=== PATIENT | male | born 1945 | race Caucasian/White ===

== ENCOUNTER 2016-08-21 11:43 | Emergency (ER) | payer OTHER, BC ==
[2016-08-21 11:46] VITALS: TEMP 98; BMI 26.4
[2016-08-21 13:11] LABS: BASOPHIL 0.7 % (0-2.0); EOSINOPHIL 0.9 % (0-4.5); MCH 32.2 pg (25.7-33.7); MCHC 33.7 g/dl (32.0-35.9); MEAN CELL VOLUME 95.6 fl (80-96); MEAN PLT VOLUME 7.5 fl (7.5-11.1); NEUTROPHILS 66.9 % (42.8-82.8); PLATELET COUNT 234 K/MM3 (134-434); RDW 13.4 % (11.9-15.9)
[2016-08-21 13:15] LABS: URINE APPEARANCE CLEAR; URINE BILIRUBIN NEGATIVE (NEGATIVE); URINE BLOOD NEGATIVE (NEGATIVE); URINE COLOR COLORLESS; URINE GLUCOSE (UA) NEGATIVE (NEGATIVE); URINE KETONE NEGATIVE (NEGATIVE); URINE LEUK ESTERASE NEGATIVE (NEGATIVE); URINE NITRITE NEGATIVE (NEGATIVE); URINE PROTEIN NEGATIVE (NEGATIVE); URINE UROBILINOGEN NEGATIVE E.U./dl (0.2-1.0)
--- NOTE | 2016-08-21 13:30 | PDOC ---
History of Present Illness - General History Source: Patient - History of Present Illness Presenting Symptoms: Chest Pain Timing/Duration: reports: constant Chest Pain Radiation: reports: no radiation <Manohar Max Last Filed: 08/21/16 17:52> <Kassandra Lucas - Last Filed: 08/22/16 11:11> - General Chief Complaint: Chest Pain Stated Complaint: CHEST PAIN Time Seen by Provider: 08/21/16 12:27 Past History - Past Medical History Anemia: No Asthma: No Cancer: No Cardiac Disorders: Yes (ATRIAL FIB) CVA: No COPD: No CHF: No Dementia: No Diabetes: No GI Disorders: Yes (GERD) Disorders: No HTN: Yes Hypercholesterolemia: Yes Liver Disease: No Seizures: No Thyroid Disease: No - Surgical History Abdominal Surgery: Yes (INGUINAL HERNIA) - Psycho/Social/Smoking Cessation Hx Suicidal Ideation: No Smoking History: Former smoker Have you smoked in the past 12 months: No If you are a former smoker, when did you quit?: 14 YRS AGO Information on smoking cessation initiated: No Hx Alcohol Use: Yes (SOCIAL) Drug/Substance Use Hx: No Substance Use Type: None <Manohar Max Last Filed: 08/21/16 17:52> <Kassandra Lucas - Last Filed: 08/22/16 11:11> - Past Medical History Allergies/Adverse Reactions: Allergies Allergy/AdvReac Type Severity Reaction Status Date / Time No Known Allergies Allergy Verified 08/21/16 11:46 Home Medications: Ambulatory Orders Atorvastatin Ca [Lipitor] 20 mg PO ASDIR 12/10/15 Flecainide Acetate 150 mg PO BID 12/10/15 Rabeprazole Sodium 20 mg PO DAILY 12/10/15 Rivaroxaban [Xarelto -] 20 mg PO DAILY 12/10/15 Tadalafil [Cialis] 5 mg PO DAILY 12/10/15 Cardiac Specific PMH - Complaint Specific PMHX Pacemaker: No <Manohar Max Filed: 08/21/16 17:52> Review of Systems - Review of Systems Constitutional: No: Fever Respiratory: No: Cough, Shortness of Breath Cardiac (ROS): Yes: Chest Pain. No: Lightheadedness, Palpitations ABD/GI: No: Nausea, Vomiting <Manohar Max - Last Filed: 08/21/16 17:52> *Physical Exam - Physical Exam General Appearance: Yes: Appropriately Dressed. No: Apparent Distress HEENT: positive: Normal Voice Neck: positive: Supple Respiratory/Chest: positive: Lungs Clear, Normal Breath Sounds. negative: Respiratory Distress Cardiovascular: positive: Regular Rate, S1, S2 Gastrointestinal/Abdominal: positive: Soft. negative: Tender Integumentary: positive: Dry, Warm Neurologic: positive: Fully Oriented, Alert, Normal Mood/Affect <Essence MaxJo Ann - Last Filed: 08/21/16 17:52> - Vital Signs Last Vital Signs Temp Pulse Resp BP Pulse Ox 98.0 F 72 18 114/60 100 08/21/16 11:43 08/21/16 18:09 08/21/16 18:09 08/21/16 18:09 08/21/16 18:09 Heart Score/ECG Review - History History: Slightly suspicious - Electrocardiogram EKG: Normal - Age Age: >/= 65 - Risk Factors Risk Factors Heart Score: Yes Hx Hypertension Based on the list above the patient has:: 1-2 risk factors - Troponin Troponin: </= normal limit - Score Heart Score - Total: 3 <Essence MaxJo Ann - Last Filed: 08/21/16 17:52> ED Treatment Course - LABORATORY CBC & Chemistry Diagram: 08/21/16 13:00 08/21/16 13:00 <MansoorEssenceJo Ann - Last Filed: 08/21/16 17:52> - LABORATORY CBC & Chemistry Diagram: 08/21/16 13:00 08/21/16 13:00 <Kassandra Lucas - Last Filed: 08/22/16 11:11> - ADDITIONAL ORDERS Additional order review: 08/21/16 13:00 RBC 4.79 MCV 95.6 MCHC 33.7 RDW 13.4 MPV 7.5 Neutrophils % 66.9 D Lymphocytes % 19.5 D Monocytes % 12.0 H Eosinophils % 0.9 D Basophils % 0.7 - Medications Given in the ED: ED Medications Discontinued Medications Generic Name Dose Route Start Last Admin Trade Name Freq PRN Reason Stop Dose Admin Acetaminophen 650 mg 08/21/16 16:51 08/21/16 16:58 Tylenol - PO 08/21/16 16:52 650 mg ONCE ONE Administration Medical Decision Making <Manohar Max - Last Filed: 08/21/16 17:52> <Kassandra Lucas - Last Filed: 08/22/16 11:11> - Medical Decision Making 08/21/16 13:30 70-year-old male, history of hypertension, A. fib on xarelto, presenting with chest pain. Patient reports left-sided, non-radiating chest pain that started this morning shortly after playing golf. Unable to describe pain and states it is a 7 out of a 10. Pain only worse with deep inspiration, not with exertion. No shortness of breath, diaphoresis, nausea, vomiting, palpitations, leg pain or swelling. States he's had similar pain in the past that usually resolve spontaneously. States this time pain is more persistent and so decided to come to ED. Of note, patient had a stress test a month ago that was negative as per patient. Follows up with Dr. Cruz of cards at [facility] and Katelyn lara is aware of ED visit See exam Atypical CP S/p neg stress last month per pt Stable and well alondra in ED Exam unremarkable Declines asa -ekg -labs -discuss dispo w/ cards 08/21/16 13:41 Case d/w Dr Cruz, agrees w/ r/o with 2 sets and discharge 08/21/16 14:01 08/21/16 16:51 08/21/16 17:03 Trops neg. Pt stable and pain free at this time. Will dc w/ cards f/u 08/21/16 17:22 08/21/16 17:52 (Manohar Max) *DC/Admit/Observation/Transfer <Manohar Max - Last Filed: 08/21/16 17:52> <Kassandra Lucas - Last Filed: 08/22/16 11:11> Diagnosis at time of Disposition: Chest pain Qualifiers: Chest pain type: chest pain on breathing Qualified Code(s): R07.1 - Chest pain on breathing - Discharge Dispostion Disposition: HOME Condition at time of disposition: Improved - Referrals Referrals: Zen Hughes MD [Primary Care Provider] - - Patient Instructions Printed Discharge Instructions: DI for Atypical Chest Pain Additional Instructions: Please follow up with your delicate fabrics presser - Attestations Physician Attestion: I reviewed the case with the mid-level practitioner and agree with the mid- level practitioner's assessment, diagnosis and disposition. (Kassandra Lucas)
[2016-08-21 13:36] LABS: ALBUMIN 3.8 g/dl (3.4-5.0); ANION GAP 8 (8-16); BILIRUBIN,TOTAL 0.7 mg/dL (0.2-1.0); CALCIUM 9.4 mg/dL (8.5-10.1); CO2 28 mmol/L (21-32); CREATININE 0.9 mg/dL (0.7-1.3); GLUCOSE,RANDOM 102 mg/dL (74-106); SGOT/AST 26 U/L (15-37); SGPT/ALT 38 U/L (12-78); TOT PROT 6.4 g/dl (6.4-8.2)
[2016-08-21 13:38] LABS: ALK PHOS 84 U/L (45-117); TROPONIN I < 0.02 ng/ml (0.00-0.05)
[2016-08-21] MEDS ORDERED: ACETAMINOPHEN 325 MG TABLET (FP) PO ONE (16:51)
[2016-08-21] MEDS ORDERED: ACETAMINOPHEN 325 MG TABLET (FP) ONE (16:55)
[2016-08-21 17:47] LABS: TROPONIN I < 0.02 ng/ml (0.00-0.05)
[2016-08-21 18:10] VITALS: BP 114/60; PULSE 72
--- NOTE | 2016-08-22 10:19 | EKG ---
Test Reason : Blood Pressure : / mmHG Vent. Rate : 065 BPM Atrial Rate : 065 BPM P-R Int : 214 ms QRS Dur : 110 ms QT Int : 448 ms P-R-T Axes : 061 -06 047 degrees QTc Int : 465 ms SINUS RHYTHM WITH 1ST DEGREE A-V BLOCK RSR' OR QR PATTERN IN V1 SUGGESTS RIGHT VENTRICULAR CONDUCTION DELAY WHEN COMPARED WITH ECG OF 10-DEC-2015 12:16, NO SIGNIFICANT CHANGE WAS FOUND Confirmed by SHAYY SHEETS MD ([id number]) on 08/22/2016 10:18:47 AM Referred By: Confirmed By:SHAYY SHEETS MD
== END 2016-08-21 18:11 | disposition home or self-care (01) ==
LOC: JER 11:43
DX: R07.89 Other chest pain (principal); I48.91 Unspecified atrial fibrillation; Z79.01 Long term (current) use of anticoagulants
CPT/HCPCS: 36415; 71010-TC; 80053; 81003; 82550; 83880; 84484; 85025; 93005; 93010; 99284-25

== ENCOUNTER 2017-11-27 10:39 | Emergency (ER) | payer OTHER, BC ==
[2017-11-27 10:46] VITALS: BMI 26.2
--- NOTE | 2017-11-27 11:01 | PDOC ---
Attending Attestation - Resident Resident Name: Raymundo Elmore - ED Attending Attestation I have performed the following: I have examined & evaluated the patient, The case was reviewed & discussed with the resident, I agree w/resident's findings & plan, Exceptions are as noted - HPI HPI: 11/27/17 10:57 72 yo M h/o afib, htn on fleicanide and xarelto here with c/o palitations racing heart beat. pt states he felt racing heart beat. took his fleicinide. no relief. denies cp . does also c/o right leg pain. no swelling. no h/ope or dvt. pt also describes right calf cramping while walking at [employer] yesterday. sudden onset sharp crampy pain. lasted <1 min and resolved. now mild aching in post calf muscle. no new back pain. 11/27/17 12:46 - Physicial Exam PE: 11/27/17 10:57 awake alert lugns clear bilaterally. heart irreg, tachy. no mrg. abd soft nt nd. ext wwp no edema 2 + pt. - Medical Decision Making 11/27/17 10:58 differential: msk strain in calf, electrolyte abnormality, good pulses pvd unlikely, dvt unlikley due to taking xarelto but will assess with dopplerdemi poor rate control afib with rvr. will obtain cbc lytes trop ekg tele monitor cxr. d/w dr. galvan. demi admit for telemetry observation. Heart Score/ECG Review #1 Compared to previous ECG there are: Other (rat 109 afib with rvr. TWI v1 V4, rbbb, afib with rvr.)
[2017-11-27 11:16] LABS: BASO % 0.4 % (0-2.0); EOS % 2.3 % (0-4.5); HEMATOCRIT 51.2 % (35.4-49); HEMOGLOBIN 17.5 GM/dL (11.7-16.9); LYMPH % 28.3 % (8-40); MCH 32.8 pg (25.7-33.7); MCHC 34.3 g/dl (32.0-35.9); MEAN CELL VOLUME 95.6 fl (80-96); MEAN PLT VOLUME 7.7 fl (7.5-11.1); MONO % 13.2 % (3.8-10.2); NEUT % 55.8 % (42.8-82.8); PLATELET COUNT 245 K/MM3 (134-434); RBC 5.35 M/mm3 (4.00-5.60); RDW 13.6 % (11.9-15.9); WHITE BLOOD COUNT 6.5 K/mm3 (4.0-10.0)
--- NOTE | 2017-11-27 11:22 | PDOC ---
History of Present Illness - General Chief Complaint: Irregular Heart Beat Stated Complaint: PCP SENT Time Seen by Provider: 11/27/17 10:46 History Source: Patient Exam Limitations: No Limitations - History of Present Illness Initial Comments: 11/27/17 11:12 The patient is a 72M with a PMH of hypercholesterolemia, paroxysmal a-fib on xarelto, HTN, and GERD who presents to the ER with complaints of palpitations and R calf pain. The patient states that he was in his normal state of health and then woke up this morning and felt palpitations. He took his flecanide as recommended by his setter off and waited, then presented to the ER after he did not have resolution of his symptoms. He also admits to 1 week of R calf pain which started when he was walking and he describes a sharp, constant, nonradiating pain, which has since resolved. He states that he only feels the pain when he pushes on it and it has not been relieved by massaging or warm baths. He denies any CP, SOB, fevers, chills, nausea, vomiting, but admits to mild discomfort in his epigastrium. Past History - Past Medical History Allergies/Adverse Reactions: Allergies Allergy/AdvReac Type Severity Reaction Status Date / Time No Known Allergies Allergy Verified 11/27/17 10:46 Home Medications: Ambulatory Orders Atorvastatin Ca [Lipitor] 20 mg PO ASDIR 12/10/15 Flecainide Acetate 150 mg PO BID 12/10/15 Rabeprazole Sodium 20 mg PO DAILY 12/10/15 Rivaroxaban [Xarelto -] 20 mg PO DAILY 12/10/15 Tadalafil [Cialis] 5 mg PO DAILY 12/10/15 Metoprolol Tartrate 50 mg PO HS MDD PM 11/27/17 Metoprolol Tartrate 150 mg PO DAILY MDD IN AM 11/27/17 Anemia: No Asthma: No Cancer: No Cardiac Disorders: Yes (ATRIAL FIB) CVA: No COPD: No CHF: No Dementia: No Diabetes: No GI Disorders: Yes (GERD) Disorders: No HTN: Yes Hypercholesterolemia: Yes Liver Disease: No Seizures: No Thyroid Disease: No - Surgical History Abdominal Surgery: Yes (INGUINAL HERNIA) - Suicide/Smoking/Psychosocial Hx Smoking History: Former smoker Have you smoked in the past 12 months: No If you are a former smoker, when did you quit?: 14 YRS AGO Information on smoking cessation initiated: No Hx Alcohol Use: Yes (SOCIAL) Drug/Substance Use Hx: No Substance Use Type: None Review of Systems - Review of Systems Able to Perform ROS?: Yes Comments:: 11/27/17 13:15 GENERAL/CONSTITUTIONAL: No fever or chills. No weakness. HEAD, EYES, EARS, NOSE AND THROAT: No change in vision. No ear pain or discharge. No sore throat. CARDIOVASCULAR: Positive for palpitations. No chest pain lightheadedness. RESPIRATORY: Positive for SOB. No cough, wheezing, or hemoptysis. GASTROINTESTINAL: Positive for epigastric discomfort. No nausea, vomiting, diarrhea, or constipation. GENITOURINARY: No dysuria, frequency, hematuria, or change in urination. MUSCULOSKELETAL: No joint or muscle swelling or pain. No neck or back pain. SKIN: No rash or lesions. NEUROLOGIC: No headache, numbness, tingling, focal weakness, loss of consciousness, or change in strength/sensation. ENDOCRINE: No increased thirst. No abnormal weight change. HEMATOLOGIC/LYMPHATIC: No anemia, easy bleeding, or history of blood clots. ALLERGIC/IMMUNOLOGIC: No hives or skin allergy. Is the patient limited Spanish proficient: No *Physical Exam - Vital Signs Last Vital Signs Temp Pulse Resp BP Pulse Ox 98 F 114 H 20 139/94 97 11/27/17 10:41 11/27/17 10:41 11/27/17 10:41 11/27/17 10:41 11/27/17 10:41 - Physical Exam Comments: 11/27/17 13:16 GENERAL: Well developed, well nourished. Awake and alert. No acute distress. HEENT: Normocephalic, atraumatic. Hearing grossly normal. Moist mucous membranes. PERRLA, EOMI. No conjunctival pallor. Sclera are non-icteric. NECK: Supple. Full ROM. No JVD. CARDIOVASCULAR: Irregularly irregular rate and rhythm. No murmurs, rubs, or gallops. PULMONARY: No evidence of respiratory distress. Lungs clear to auscultation bilaterally. No wheezing, rales or rhonchi. ABDOMINAL: Soft. Non-tender. Non-distended. No rebound or guarding. GENITOURINARY: No CVA tenderness bilaterally. MUSCULOSKELETAL: Normal range of motion at all joints. No bony deformities or tenderness. EXTREMITIES: No cyanosis. No clubbing. No edema. No calf tenderness or swelling. SKIN: Warm and dry. Normal capillary refill. No rashes. No jaundice. NEUROLOGICAL: Alert, awake, appropriate. Cranial nerves 2-12 intact. Normal speech. Gait is normal without ataxia. PSYCHIATRIC: Cooperative. Good eye contact. Appropriate mood and affect. Heart Score/ECG Review #1 ECG reviewed & interpreted by me at: 10:55 General ECG Interpretation: Sinus Rhythm, Normal Rate, Normal Intervals, No acute ischemic changes Compared to previous ECG there are: Changes noted 11/27/17 13:18 A fib with RVR rate 110 NC - QRS 106 Qtc 535 Incomplete RBBB unchanged Prolonged QT No STD or ALONZO No signs of acute ischemia CHANGED FROM PRIOR #2 ECG reviewed & interpreted by me at: 11:10 General ECG Interpretation: Sinus Rhythm, Normal Rate, Normal Intervals, No acute ischemic changes Compared to previous ECG there are: Changes noted 11/27/17 13:20 NSR vent rate 70 NC 228 QRS 106 QTc 464 1st degree AV block, unchanged from prior Incomplete RBBB NORMAL SINUS No longer in a-fib No STD or ALONZO ED Treatment Course - LABORATORY CBC & Chemistry Diagram: 11/27/17 10:55 11/27/17 10:55 - ADDITIONAL ORDERS Additional order review: Laboratory Results 11/27/17 10:55 TSH Cancelled - RADIOLOGY Radiology Studies Ordered: Category Date Time Status CHEST X-RAY PORTABLE* [RAD] Stat Radiology 11/27/17 10:49 Ordered DUPLEX VASCUL US-1 LEG [US] Stat Ultrasound 11/27/17 10:55 Ordered Medical Decision Making - Medical Decision Making 11/27/17 13:20 The patient is a 72M with a PMH of paroxysmal a-fib on xarelto who presents to the ER with palpitations since he woke up. Initial EKG shows a-fib with repeat showing NSR. Will d/w Dr. Cruz for recs on dispo. CBC, CMP, and troponin negative. CXR negative. Pending call back. 11/27/17 13:46 Dr. Cruz requests a d-dimer be sent and a call back for results. Will place order. 11/27/17 14:45 D-dimer WNL. Will d/c home with cards f/u. *DC/Admit/Observation/Transfer Diagnosis at time of Disposition: Right calf pain, Palpitations, Paroxysmal atrial fibrillation - Discharge Dispostion Disposition: HOME Condition at time of disposition: Stable Decision to Admit order: No - Referrals Referrals: Zen Hughes MD [Primary Care Provider] - Rishabh Cruz MD [Staff Physician] - - Patient Instructions Printed Discharge Instructions: DI for Arrhythmias Additional Instructions: Please follow up with Dr. Cruz tomorrow. Call his office in the morning for an appointment. Please return to the ER if you have any signs or symptoms of chest pain, shortness of breath, uncontrollable fever, chills, nausea, vomiting, numbness, tingling, or weakness in any part of your body, changes in vision, or slurred speech. Please take your medications as prescribed. Please return to the ER if symptoms persist, worsen, or new symptoms arise. - Post Discharge Activity
[2017-11-27 11:29] LABS: INR 1.61 (0.83-1.09); PROTHROMBIN TIME (PATIENT) 18.2 SEC (9.7-13.0)
[2017-11-27 11:49] LABS: ALK PHOS 92 U/L (45-117); ANION GAP 5 MMOL/L (8-16); BILIRUBIN,TOTAL 0.8 mg/dL (0.2-1); BLOOD UREA NITROGEN 19 mg/dL (7-18); CALCIUM 8.9 mg/dL (8.5-10.1); CHLORIDE 106 mmol/L (98-107); CO2 29 mmol/L (21-32); GLUCOSE,RANDOM 110 mg/dL (74-106); MAGNESIUM 2.1 mg/dL (1.8-2.4); POTASSIUM 4.2 mmol/L (3.5-5.1); SGOT/AST 34 U/L (15-37); SGPT/ALT 49 U/L (13-61); SODIUM 140 mmol/L (136-145)
[2017-11-27 13:40] VITALS: TEMP 98.1
[2017-11-27 14:49] VITALS: BP 112/71; PULSE 55
--- NOTE | 2017-11-27 16:59 | EKG ---
Test Reason : Blood Pressure : / mmHG Vent. Rate : 109 BPM Atrial Rate : 326 BPM P-R Int : 000 ms QRS Dur : 106 ms QT Int : 398 ms P-R-T Axes : 000 022 057 degrees QTc Int : 535 ms ATRIAL FIBRILLATION WITH RAPID VENTRICULAR RESPONSE INCOMPLETE RIGHT BUNDLE BRANCH BLOCK PROLONGED QT ABNORMAL ECG WHEN COMPARED WITH ECG OF 21-AUG-2016 11:51, SIGNIFICANT CHANGES HAVE OCCURRED Confirmed by MD Jose Guadalupe, Poli ([id number]) on 11/27/2017 4:58:55 PM Referred By: Confirmed By:Poli Shi MD
--- NOTE | 2017-11-28 12:10 | EKG ---
Test Reason : Blood Pressure : / mmHG Vent. Rate : 064 BPM Atrial Rate : 064 BPM P-R Int : 228 ms QRS Dur : 106 ms QT Int : 450 ms P-R-T Axes : 048 -16 023 degrees QTc Int : 464 ms SINUS RHYTHM WITH 1ST DEGREE A-V BLOCK POSSIBLE LEFT ATRIAL ENLARGEMENT INCOMPLETE RIGHT BUNDLE BRANCH BLOCK BORDERLINE ECG WHEN COMPARED WITH ECG OF 27-NOV-2017 10:43, SINUS RHYTHM HAS REPLACED ATRIAL FIBRILLATION VENT. RATE HAS DECREASED BY 45 BPM T WAVE INVERSION NO LONGER EVIDENT IN ANTERIOR LEADS QT HAS SHORTENED Confirmed by ROSALBA OLIVA MD ([id number]) on 11/28/2017 12:10:43 PM Referred By: Confirmed By:ROSALBA OLIVA MD
== END 2017-11-27 14:52 | disposition home or self-care (01) ==
LOC: JER 10:39
DX: R00.2 Palpitations (principal); M79.661 Pain in right lower leg; I48.0 Paroxysmal atrial fibrillation; Z79.01 Long term (current) use of anticoagulants; I10 Essential (primary) hypertension; K21.9 Gastro-esophageal reflux disease without esophagitis; E78.00 Pure hypercholesterolemia, unspecified
CPT/HCPCS: 36415; 71045-TC-FY; 80053; 82550; 83735; 84443; 84484; 85025; 85379; 85610; 93005; 93010; 93971-TC; 99284-25

== ENCOUNTER 2018-06-10 11:25 | Emergency (ER) | payer OTHER, BC ==
[2018-06-10 11:44] VITALS: BP 161/78; PULSE 62; TEMP 98.3; BMI 27.1
--- NOTE | 2018-06-10 12:21 | PDOC ---
History of Present Illness - General Chief Complaint: Urinary Problem Stated Complaint: UTI Time Seen by Provider: 06/10/18 12:07 History Source: Patient Exam Limitations: No Limitations - History of Present Illness Initial Comments: 72 yo m w a hx of BPH, multiple episodes of urosepsis, HLD, Afib, HTN, GERD, sleep apnea presents to the ER w 14 hours of dysuria and oliguria. For the first ten hours of his symptoms he has needed to urinate every 3 minutes but they are very small amounts and it's only dribbling. but in the past four hours he has had a significant urge to go but when he goes the flow is non-existant. He states that there is a pressure in his bladder and underneath his scrotal region. The pressure is worsened when he sits down. Normally, he takes cialis for 3 years but hasn't taken it for the past 3 weeks for an insurance related reason. He denies blood in his urine, fevers, chills, sweats, abdominal pain, n/ v/d/c, and no changes to his bowel habbits or lower back pain, and no lower extremity weakness or paresthesias. One week ago he fell down 2/3 steps but didn 't land on his back - he landed on his butt. He has two episodes of urosepsis one 3 years ago and another 15 years back. Regarding sexual infections - he says he is sexually acitve with one partner. When asked if he might have an STD he requested to be tested for gonorrhea and chlamydia. PCP: Dr. Hughes- saw him a week ago and all was normal Urologist: Dr. Couch - [phone] Allergies: NKA, NKDA Past History - Past Medical History Allergies/Adverse Reactions: Allergies Allergy/AdvReac Type Severity Reaction Status Date / Time No Known Allergies Allergy Verified 06/10/18 11:41 Home Medications: Ambulatory Orders Atorvastatin Ca [Lipitor] 20 mg PO ASDIR 12/10/15 Flecainide Acetate 150 mg PO BID 12/10/15 Rabeprazole Sodium 20 mg PO DAILY 12/10/15 Rivaroxaban [Xarelto -] 20 mg PO DAILY 12/10/15 Tadalafil [Cialis] 5 mg PO DAILY 12/10/15 Metoprolol Tartrate 50 mg PO HS MDD PM 11/27/17 Metoprolol Tartrate 150 mg PO DAILY MDD IN AM 11/27/17 Anemia: No Asthma: No Cancer: No Cardiac Disorders: Yes (ATRIAL FIB) CVA: No COPD: No CHF: No Dementia: No Diabetes: No GI Disorders: Yes (GERD) Disorders: No HTN: Yes Hypercholesterolemia: Yes Liver Disease: No Seizures: No Thyroid Disease: No - Surgical History Abdominal Surgery: Yes (INGUINAL HERNIA) - Immunization History Immunization Up to Date: Yes - Suicide/Smoking/Psychosocial Hx Smoking History: Never smoked Have you smoked in the past 12 months: No If you are a former smoker, when did you quit?: 14 YRS AGO Hx Alcohol Use: No Drug/Substance Use Hx: No Substance Use Type: None Review of Systems - Review of Systems Able to Perform ROS?: Yes Comments:: CONSTITUTIONAL: Absent: fever, no chills, no fatigue EYES: Absent: visual changes ENT: Absent: ear pain, no sore throat CARDIOVASCULAR: Absent: chest pain, no palpitations RESPIRATORY: Absent: cough, no SOB GI: Present: abdominal pain. Absent: no nausea, no vomiting, no constipation, no diarrhea GENITOURINARY: Present: hesitancy, dysuria Absent: no frequency, no hematuria MUSKULOSKELETAL: Absent: back pain, no arthralgia, no myalgia SKIN: Absent: rash NEURO: Absent: headache *Physical Exam - Vital Signs Last Vital Signs Temp Pulse Resp BP Pulse Ox 98.3 F 62 17 161/78 97 06/10/18 11:42 06/10/18 11:42 06/10/18 11:42 06/10/18 11:42 06/10/18 11:42 - Physical Exam Comments: GENERAL: Well-appearing, well-nourished. Mild distress. HEENT: Normocephalic, atraumatic. PERRL, EOM intact. CARDIOVASCULAR: Normal S1, S2. Regular rate and rhythm. PULMONARY: No evidence of respiratory distress. Lungs clear to auscultation bilaterally. No wheezing, rales or rhonchi. ABDOMEN: The abdomen is distended in the suprapubic region. There is TTP near the bladder. Normal bowel sounds. No upper abdominal discomfort. EXTREMITIES: Normal ROM in all four extremities. No gross deformities. SKIN: Warm, dry. No rash NEUROLOGICAL: No focal neurological deficits. Male Genitalia: positive: normal genitalia. negative: normal prostate ( Enlarged and smooth. No focal nodules), discharge, testicular tenderness, testicular mass, epididymus tender, inguinal hernia, hernia, CVAT Rectal Exam: positive: normal rectal tone. negative: normal exam, NL Prostate ( diffusely enlarged), decreased tone ED Treatment Course - LABORATORY CBC & Chemistry Diagram: 06/10/18 13:43 06/10/18 13:45 Medical Decision Making - Medical Decision Making 72 yo m w a hx of BPH, multiple episodes of urosepsis, HLD, Afib, HTN, GERD, sleep apnea presents to the ER w 14 hours of dysuria and oliguria. For the first ten hours of his symptoms he has needed to urinate every 3 minutes but they are very small amounts and it's only dribbling. but in the past four hours he has had a significant urge to go but when he goes the flow is non-existant. He states that there is a pressure in his bladder and underneath his scrotal region. The pressure is worsened when he sits down. Normally, he takes cialis for 3 years but hasn't taken it for the past 3 weeks for an insurance related reason. He denies blood in his urine, fevers, chills, sweats, abdominal pain, n/ v/d/c, and no changes to his bowel habbits or lower back pain, and no lower extremity weakness or paresthesias. One week ago he fell down 2/3 steps but didn 't land on his back - he landed on his butt. He has two episodes of urosepsis one 3 years ago and another 15 years back. Regarding sexual infections - he says he is sexually acitve with one partner. When asked if he might have an STD he requested to be tested for gonorrhea and chlamydia. VS: WNL DDx IBNLT: UTI/Pylo, urinary obstruction secondary to bph, prostatitis, renal colic/stone/injury. Plan: Urine, Labs, Uro consult, bedside US. POCUS shows urinary retnetion of 800CC of Urine as well as mild right sided hydronephrosis Spoke with Dr. gudino - covering for Dr. Couch urology who requests for a catheter to be placed in the patient for 2 days and for him to follow up at the urologists office in 2 days time. Gillespie placed with return of 800 CC of clear urine. UA doesn't appear grossly infected. Labs unremarkable other than mild bump in BUN to 19. UA shows minimally positive nitrite but no LE or wbc. Will schedule for patient to receive a call back if UC grows any bacteria. Will DC patient with gillespie and instructions to follow up with his urologist in 2 days time. *DC/Admit/Observation/Transfer Diagnosis at time of Disposition: Urinary obstruction - Discharge Dispostion Disposition: HOME Condition at time of disposition: Improved Decision to Admit order: No - Referrals Referrals: Zen Hughes MD [Primary Care Provider] - - Patient Instructions Printed Discharge Instructions: How to Care for Your Gillespie Catheter -- Male, Benign Prostatic Hyperplasia, DI for Urinary Retention in Men Additional Instructions: You came into the ER with a distended abdomen secondary to urinary obstruction. This likely happened as a result of your prostate enlarging and blocking the outflow path. We placed a gillespie catheter and drained 800CC of urine. Please make sure to call up your urologist and schedule an appointment in the next 2 days. Come back to the ER immediately if your pain worsens, if you get a fever, or any other signs of infection, or have any other new or worsening concerns. Thank you for coming to the [facility] ER. We hope you feel better soon! Print Language: GREENLANDIC - Post Discharge Activity
[2018-06-10] MEDS ORDERED: ACETAMINOPHEN 325 MG TABLET (FP) PO ONE (13:24)
--- NOTE | 2018-06-10 13:35 | PDOC ---
Attending Attestation - Resident Resident Name: KeithNaif - ED Attending Attestation I have performed the following: I have examined & evaluated the patient, The case was reviewed & discussed with the resident, I agree w/resident's findings & plan, Exceptions are as noted <Sima Cotter - Last Filed: 06/10/18 13:35> - HPI HPI: The patient is a 72 year old male, with a significant PMH of paroxysmal A-fib, HTN, HLD, GERD, multiple episodes of urosepsis, and sleep apnea, who presents to the emergency department today complaining of dysuria and oliguria for one day. Patient notes his symptoms began as urinary urgency every 3 minutes, but with minimal output (only dribbling would produce). Now, patient states he has the urge to urinate, but nothing is produced. He reports associated bladder pressure, exacerbated with sitting down. Patient typically takes cialis daily for the past 3 years, but has not in the past 3 weeks secondary to insurance complications. The patient denies chest pain, shortness of breath, headache and dizziness. Denies fever, chills, nausea, vomit, diarrhea and constipation. Denies dysuria, frequency, urgency and hematuria. Allergies: NKA Past surgical history: Inguinal hernia repair Social history: Former smoker (quit 14 years ago) PCP: Dr. Rock Hughes Urologist: Dr. Marina- [facility] ([id number]) 06/10/18 13:36 - Physicial Exam PE: GENERAL: The patient is in no acute distress. ENT: Ears normal, nares patent, oropharynx clear without exudates. Moist mucous membranes. NECK: Normal range of motion, supple, no nuchal rigidity LUNGS: Breath sounds equal, clear to auscultation bilaterally. No wheezes, and no crackles. HEART: Regular rate and rhythm, normal S1 and S2 without murmur, rub or gallop. ABDOMEN: +Superpubic tenderness to palpation. +Superpubic distention. Soft, normoactive bowel sounds. No guarding, no rebound. No masses palpable. EXTREMITIES: Normal range of motion, no edema. 06/10/18 13:36 - Medical Decision Making 1:30pm- placed call to Dr. Marina's service, spoke with Dr. Chan (automation manager ) concerning patient's care. Documentation prepared by TOMMY Cameron, acting as medical unit secretary for Sima Cotter MD. 06/10/18 13:36 <Ping Jenkins - Last Filed: 06/10/18 13:37>
[2018-06-10 14:04] LABS: BASO % 0.2 % (0-2.0); EOS % 0.5 % (0-4.5); HEMATOCRIT 48.1 % (35.4-49); HEMOGLOBIN 16.3 GM/dL (11.7-16.9); LYMPH % 10.6 % (8-40); MCH 32.8 pg (25.7-33.7); MCHC 33.8 g/dl (32.0-35.9); MEAN CELL VOLUME 97.1 fl (80-96); MEAN PLT VOLUME 7.6 fl (7.5-11.1); MONO % 9.7 % (3.8-10.2); PLATELET COUNT 280 K/MM3 (134-434); RBC 4.95 M/mm3 (4.00-5.60); RDW 13.3 % (11.9-15.9); WHITE BLOOD COUNT 10.3 K/mm3 (4.0-10.0)
[2018-06-10 14:12] LABS: PH,URINE 5.5 (5.0-8.0); URINE APPEARANCE CLEAR; URINE BILIRUBIN NEGATIVE (NEGATIVE); URINE CASTS REVIEW /hpf (0-8); URINE COLOR DK YELLOW; URINE GLUCOSE (UA) NEGATIVE (NEGATIVE); URINE KETONE NEGATIVE (NEGATIVE); URINE LEUK ESTERASE TRACE (NEGATIVE); URINE NITRITE POSITIVE (NEGATIVE); URINE PROTEIN NEGATIVE (NEGATIVE)
[2018-06-10 14:25] LABS: ALBUMIN 4.2 g/dl (3.4-5.0); ALK PHOS 90 U/L (45-117); ANION GAP 9 MMOL/L (8-16); BILIRUBIN,TOTAL 0.8 mg/dL (0.2-1); BLOOD UREA NITROGEN 19 mg/dL (7-18); CALCIUM 9.3 mg/dL (8.5-10.1); CHLORIDE 105 mmol/L (98-107); CO2 25 mmol/L (21-32); CREATININE 1.1 mg/dL (0.55-1.3); GLUCOSE,RANDOM 115 mg/dL (74-106); POTASSIUM 4.3 mmol/L (3.5-5.1); SGOT/AST 29 U/L (15-37); SGPT/ALT 30 U/L (13-61); SODIUM 139 mmol/L (136-145); TOT PROT 6.8 g/dl (6.4-8.2)
[2018-06-10 14:30] LABS: URINE RBC 0-2 /hpf (0-4)
[2018-06-10 14:31] LABS: EPI CELLS NONE SEEN /HPF (0-5); URINE BACTERIA FEW /hpf (NEGATIVE)
== END 2018-06-10 16:00 | disposition home or self-care (01) ==
LOC: JER 11:25
PROC: 0T9B70Z Drainage of Bladder with Drainage Device, Via Natural or Artificial Opening (ICD-10-PCS; principal; 2018-06-10)
PROC: BT40ZZZ Ultrasonography of Bladder (ICD-10-PCS; 2018-06-10)
DX: N13.8 Other obstructive and reflux uropathy (principal); N13.30 Unspecified hydronephrosis; I10 Essential (primary) hypertension; I48.91 Unspecified atrial fibrillation; Z79.01 Long term (current) use of anticoagulants; E78.5 Hyperlipidemia, unspecified; K21.9 Gastro-esophageal reflux disease without esophagitis
CPT/HCPCS: 36415; 51702; 76770; 80053; 81003; 85025; 87086; 87491; 87591; 99282-25